=== PATIENT | male | born 1980 | race Asian ===

== ENCOUNTER 2021-07-05 14:24 | Inpatient (IN) | payer BC, OTHER ==
[2021-07-05] VITALS (9 sets, daily range): BP systolic 90–119; BP diastolic 54–72
[~2021-07-05] VITALS: Ht 167.6 cm; Wt 60.5 kg
[2021-07-05] MEDS ORDERED: SODIUM CHLORIDE 0.9% 1,000 ML IV ONE ×2 (14:30)
[2021-07-05] MEDS ORDERED: PANTOPRAZOLE SODIUM 40 MG/VIAL IVP ONE (14:30)
[2021-07-05] MEDS ORDERED: ONDANSETRON HCL 4 MG/2 ML VIAL IVP ONE (14:30)
[2021-07-05 14:53] LABS: COVID AG,FIA SOURCE NASOPHARYNGEAL
[2021-07-05 15:03] LABS: B-TYPE NATRIURETIC PEPTIDE 22 pg/mL (0-100); BASOPHILS % (AUTO) 1.3 % (0.0-2.0); EOSINOPHILS % (AUTO) 1.3 % (1.0-6.0); LYMPHOCYTES # (AUTO) 1.5 K/uL (1.0-4.8); LYMPHOCYTES % (AUTO) 41.9 % (22.0-44.0); MEAN CORPUSCULAR HEMOGLOBIN 18.6 pg (26.0-34.0); MEAN CORPUSCULAR HGB CONC 29.5 G/dL (31.0-37.0); MEAN CORPUSCULAR VOLUME 63 fL (80-100); MONOCYTES # (AUTO) 0.4 K/uL (0.1-1.0); MONOCYTES % (AUTO) 9.9 % (2.0-9.0); NEUTROPHILS # (AUTO) 1.7 K/uL (1.8-7.7); NEUTROPHILS % (AUTO) 45.6 % (40.0-70.0); PLATELET COUNT (AUTO) 302 K/uL (150-450); PROTHROMBIN TIME 10.7 SEC (9.4-11.6); RED BLOOD CELL COUNT(AUTO) 2.68 MIL/uL (4.50-5.90); RED CELL DISTRIBUTION WIDTH 19.5 % (11.5-14.5)
[2021-07-05 15:06] LABS: ANION GAP 11 mmol/L (8-16); CALCIUM, TOTAL 8.5 mg/dL (8.8-10.5); CARBON DIOXIDE 24 mmol/L (22-29); CHLORIDE 98 mmol/L (98-107); CREATININE 0.92 mg/dL (0.60-1.30); GLOMERULAR FILTR. RATE CALC > 60 mL/min (>60); GLUCOSE,RANDOM 144 mg/dL (70-110); POTASSIUM 3.6 mmol/L (3.5-5.1); SODIUM SERUM 133 mmol/L (136-145); UREA NITROGEN, BLOOD 14 mg/dL (7-18)
[2021-07-05 15:19] LABS: ALANINE AMINOTRANSFERASE 20 U/L (12-78); ALBUMIN 3.5 g/dL (3.4-5.0); ALKALINE PHOSPHATASE 53 U/L (46-116); ASPARTATE AMINOTRANSFERASE 13 U/L (15-37); BILIRUBIN,TOTAL 0.4 mg/dL (0.1-1.0); CREATINE KINASE, TOTAL ONLY 70 U/L (39-308); LIPASE 123 U/L (73-393)
[2021-07-05 15:29] LABS: LACTIC ACID 3.6 mmol/L (0.4-2.0)
[2021-07-05 15:32] LABS: HEMATOCRIT 16.8 % (41-53)
[2021-07-05] MEDS ORDERED: ONDANSETRON HCL 4 MG/2 ML VIAL IVP PRN (16:45)
[2021-07-05] MEDS ORDERED: MORPHINE SULFATE 2 MG/ML SYRINGE IVP PRN (16:45)
[2021-07-05] MEDS ORDERED: BISACODYL 10 MG RECTAL RECTAL SUPPOSITORY PR PRN (16:45)
[2021-07-05] MEDS ORDERED: MAGNESIUM HYDROXIDE SUSPENSION 30 ML UDCUP PO PRN (16:45)
[2021-07-05] MEDS ORDERED: ACETAMINOPHEN 325 MG TABLET PO PRN (16:45)
[2021-07-05] MEDS ORDERED: ZOLPIDEM TARTRATE 5 MG TABLET PO PRN (16:45)
[2021-07-05] MEDS ORDERED: HYDROCODONE/ACETAMINOPHEN 5-325 MG TABLET PO PRN (16:45)
[2021-07-05 17:01] LABS: PLATELET MORPHOLOGY COMMENT LARGE PLTS PRESENT
[2021-07-05] MEDS: PANTOPRAZOLE SODIUM 80 MG in SODIUM CHLORIDE 0.9% 100 ML IV SCH (20:08)
[2021-07-05] MEDS: DOCUSATE SODIUM 100 MG CAPSULE PO SCH (20:59)
[2021-07-05] MEDS ORDERED: PEG 3350/NA SULF,BICARB,CL/KCL 4000 ML SOLUTION PO ONE (22:45)
[2021-07-06] VITALS (12 sets, daily range): BP systolic 94–121; BP diastolic 44–76
[2021-07-06 00:56] LABS: HEMATOCRIT 21.5 % (41-53)
[2021-07-06 01:01] LABS: HEMOGLOBIN 6.8 g/dL (13.5-17.5)
[2021-07-06 02:11] LABS: HEMATOCRIT 21.6 % (41-53)
[2021-07-06] MEDS: PANTOPRAZOLE SODIUM 80 MG in SODIUM CHLORIDE 0.9% 100 ML IV SCH (02:59)
[2021-07-06] MEDS: DOCUSATE SODIUM 100 MG CAPSULE PO SCH ×2 (09:00→21:30)
[2021-07-06] MEDS ORDERED: PANTOPRAZOLE SODIUM 40 MG DR TABLET PO SCH (09:00)
[2021-07-06 09:09] LABS: HEMOGLOBIN 6.6 g/dL (13.5-17.5)
[2021-07-06 09:10] LABS: HEMATOCRIT 20.6 % (41-53)
[2021-07-06 09:13] LABS: ANION GAP 11 mmol/L (8-16); CALCIUM, TOTAL 8.2 mg/dL (8.8-10.5); CARBON DIOXIDE 26 mmol/L (22-29); CHLORIDE 105 mmol/L (98-107); CREATININE 1.03 mg/dL (0.60-1.30); GLOMERULAR FILTR. RATE CALC > 60 mL/min (>60); GLUCOSE,RANDOM 94 mg/dL (70-110); POTASSIUM 3.9 mmol/L (3.5-5.1); SODIUM SERUM 142 mmol/L (136-145); UREA NITROGEN, BLOOD 10 mg/dL (7-18)
[2021-07-06] MEDS ORDERED: SODIUM CHLORIDE 0.9% 100 ML ONE (11:36)
[2021-07-06] MEDS ORDERED: PROPOFOL 1% 20 ML VIAL IVP ONE (12:00)
[2021-07-06] MEDS ORDERED: SODIUM CHLORIDE 0.9% 1,000 ML ONE (14:27)
[2021-07-06 14:48] LABS: PATHOLOGY REVIEW, DIFF YES
[2021-07-06 16:45] LABS: HEMATOCRIT 25.9 % (41-53); HEMOGLOBIN 8.4 g/dL (13.5-17.5)
[2021-07-06] MEDS: HYDROCORTISONE 2.5% 30 GM CREAM TP SCH (21:30)
[2021-07-07] VITALS: BP 112/76
[2021-07-07 01:28] LABS: HEMATOCRIT 23.3 % (41-53); HEMOGLOBIN 7.7 g/dL (13.5-17.5)
[2021-07-07 04:00] VITALS: BP 118/92
[2021-07-07 05:21] LABS: ANION GAP 6 mmol/L (8-16); CALCIUM, TOTAL 8.1 mg/dL (8.8-10.5); CARBON DIOXIDE 29 mmol/L (22-29); CHLORIDE 105 mmol/L (98-107); CREATININE 1.07 mg/dL (0.60-1.30); GLOMERULAR FILTR. RATE CALC > 60 mL/min (>60); GLUCOSE,RANDOM 98 mg/dL (70-110); POTASSIUM 3.8 mmol/L (3.5-5.1); SODIUM SERUM 140 mmol/L (136-145); UREA NITROGEN, BLOOD 12 mg/dL (7-18)
[2021-07-07 08:00] VITALS: BP 116/52
[2021-07-07 08:24] LABS: HEMATOCRIT 24.3 % (41-53)
[2021-07-07] MEDS: DOCUSATE SODIUM 100 MG CAPSULE PO SCH (09:51)
[2021-07-07] MEDS: HYDROCORTISONE 2.5% 30 GM CREAM TP SCH (09:52)
[2021-07-07 12:00] VITALS: BP 99/50
[2021-07-07] MEDS ORDERED: ANUSHCS PR (13:13)
== END 2021-07-07 14:30 | disposition home or self-care (01) | DRG 393 ==
LOC: EMS 14:24 → ICU 16:23
PROVIDERS: ADMIT Internal Medicine; ATTEND Internal Medicine
PROC: 30233N1 Transfusion of Nonautologous Red Blood Cells into Peripheral Vein, Percutaneous Approach (ICD-10-PCS; principal; 2021-07-05)
PROC: 0DJ08ZZ Inspection of Upper Intestinal Tract, Via Natural or Artificial Opening Endoscopic (ICD-10-PCS; 2021-07-06)
PROC: 0DJD8ZZ Inspection of Lower Intestinal Tract, Via Natural or Artificial Opening Endoscopic (ICD-10-PCS; 2021-07-06)
DX: K64.8 Other hemorrhoids (principal); R57.1 Hypovolemic shock; D62 Acute posthemorrhagic anemia; R65.10 Systemic inflammatory response syndrome (SIRS) of non-infectious origin without acute organ dysfunction; Z20.822 Contact with and (suspected) exposure to COVID-19; D64.9 Anemia, unspecified; K59.00 Constipation, unspecified; I10 Essential (primary) hypertension; R55 Syncope and collapse
CPT/HCPCS: 71045; 80048; 80053; 82550; 83605; 83690; 83735; 83880; 84100; 84484; 85014; 85018; 85025; 85610; 85730; 86850; 86900; 86901; 86923; 87081; 93005; 99291; C9113; G0378; G0480; J2405; J2704; J7030; J7050; P9016; 36415-L1; 36415-TC